=== PATIENT | female | born 1945 | race Caucasian/White ===

== ENCOUNTER 2017-01-19 08:36 | Day surgery (SDC) | payer MEDICARE ==
[~2017-01-19] VITALS: Ht 165.1 cm; Wt 61.0 kg
[~2017-01-19 08:36] MED LIST: PHENYLEPHRINE 2.5% EYE DROPS 5ml RIGHT EYE PRN
--- OUTSIDE RECORDS SUMMARY | 2017-01-19 08:41 | XMS REPORT | Referral Summary ---
Author Author [facility] Organization [facility] Address Unknown Phone Unavailable Care Team Providers Care Program Architect Name Role Phone Rust, The Primary Care Physician Unavailable Encounter [facility] [id number] Date(s): 10/19/16 - 10/19/16 [facility] [address] [place] [address] Discharge Disposition: 01-Home or Self Care Attending Physician: Rachel Mathews DO Vital Signs No data available for this section Problem List No data available for this section Allergies, Adverse Reactions, Alerts No data available for this section Medications No data available for this section Results No data available for this section Immunizations No data available for this section Procedures No data available for this section Social History No data available for this section Assessment and Plan No data available for this section
--- OUTSIDE RECORDS SUMMARY | 2017-01-19 08:41 | XMS REPORT ---
Author Author Nissa Ferrer 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
--- OUTSIDE RECORDS SUMMARY | 2017-01-19 08:41 | XMS REPORT ---
Author Author Nissa Ferrer [facility] Address [address] [place] [address] Care Team Providers Care Steam Plant Records Clerk Name Role Phone Nissa Ferrer Unavailable [phone] PROBLEMS Type Condition ICD9-CM Code EVB36-ZB Code Onset Dates Condition Status SNOMED Code Problem Unilateral primary osteoarthritis, right hip M16.11 Active 806721107 Problem Rheumatoid arthritis, unspecified M06.9 Active 07617533 Problem Other hyperlipidemia E78.4 Active 17310975 Problem Essential (primary) hypertension I10 Active 06224074 Problem Overactive bladder N32.81 Active 303695289 ALLERGIES Unknown Allergies SOCIAL HISTORY No smoking Hx information available PLAN OF CARE VITAL SIGNS MEDICATIONS Unknown Medications RESULTS No Results PROCEDURES No Known procedures IMMUNIZATIONS No Known Immunizations
--- OUTSIDE RECORDS SUMMARY | 2017-01-19 08:41 | XMS REPORT ---
Author Author Nissa Ferrer [facility] Address [address] [place] [address] Care Team Providers Care Traffic Analysis Technician Name Role Phone Nissa Ferrer Unavailable [phone] PROBLEMS Type Condition ICD9-CM Code ZHO07-WA Code Onset Dates Condition Status SNOMED Code Problem Rheumatoid arthritis, unspecified M06.9 Active 96948002 Problem Essential (primary) hypertension I10 Active 83662837 Problem Overactive bladder N32.81 Active 209231287 Problem Other hyperlipidemia E78.4 Active 65813380 ALLERGIES Unknown Allergies SOCIAL HISTORY No smoking Hx information available PLAN OF CARE VITAL SIGNS MEDICATIONS Unknown Medications RESULTS No Results PROCEDURES No Known procedures IMMUNIZATIONS No Known Immunizations
--- OUTSIDE RECORDS SUMMARY | 2017-01-19 08:41 | XMS REPORT ---
Author Author Nissa Ferrer Organization [facility] Address [address] [place] [address] Care Team Providers Care Cardroom Attendant Name Role Phone Nissa Ferrer Unavailable [phone] PROBLEMS Type Condition ICD9-CM Code TFK81-ET Code Onset Dates Condition Status SNOMED Code Problem Unilateral primary osteoarthritis, right hip M16.11 Active 306004202 Problem Rheumatoid arthritis, unspecified M06.9 Active 85251727 Problem Other hyperlipidemia E78.4 Active 22986738 Problem Essential (primary) hypertension I10 Active 44691688 Problem Overactive bladder N32.81 Active 279423193 ALLERGIES Unknown Allergies SOCIAL HISTORY No smoking Hx information available PLAN OF CARE VITAL SIGNS MEDICATIONS Medication Instructions Dosage Frequency Start Date End Date Duration Status Potassium Chloride Edith ER 20 MEQ Orally Twice a day 1 tablet 12h Dec, 6 days Active RESULTS No Results PROCEDURES No Known procedures IMMUNIZATIONS No Known Immunizations
--- OUTSIDE RECORDS SUMMARY | 2017-01-19 08:41 | XMS REPORT | Continuity of Care Document ---
Author Author [facility] Organization [facility] Address Unknown Phone Unavailable Allergies Medications Problems Date Dx Coded Attending Type Code Diagnosis Diagnosed By 12/17/2016 Rachel Mathews DO Z01.812 ENCOUNTER FOR PREPROCEDURAL LABORATORY E Procedures Results Encounters ACCT No. Visit Date/Time Discharge Status Pt. Type Provider Facility Loc./Unit Complaint [id number] 12/17/2016 11:38:00 2016 11:38:00 DIS Outpatient Rachel Mathews DO [facility]
--- OUTSIDE RECORDS SUMMARY | 2017-01-19 08:41 | XMS REPORT ---
Author Author Nissa Ferrer Organization [facility] Address [address] [place] [address] Care Team Providers Care Entry Level Name Role Phone Nissa Ferrer Unavailable [phone] PROBLEMS Type Condition ICD9-CM Code NVL33-ZV Code Onset Dates Condition Status SNOMED Code Assessment Encounter for preprocedural laboratory examination Z01.812 Dec, Active Assessment Encounter for other preprocedural examination Z01.818 Dec, Active 030261918 Assessment Encounter for preprocedural cardiovascular examination Z01.810 Dec, Active 069374007 Assessment Other benign neoplasm of skin of other parts of face D23.39 Dec, Active 97016194 Assessment Other subjective visual disturbances H53.19 Dec, Active 12358233 Assessment Other abnormal findings in urine R82.99 Dec, Active 785145254 Problem 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 Unknown Non Drug Allergy Dec, Unknown SOCIAL HISTORY No smoking Hx information available PLAN OF CARE Activity Details Future/Pending Procedure -ELECTROCARDIOGRAM, COMPLETE 3 Months, prn,Reason: VITAL SIGNS Height 64 in 2016-12-17 Weight 138.2 lbs 2016-12-17 BMI 23.72 kg/m2 2016-12-17 Heart Rate 65 /min 2016-12-17 Temperature 98.1 degrees Fahrenheit 2016-12-17 Blood pressure systolic 132 mm Hg 2016-12-17 Blood pressure diastolic 76 mm Hg 2016-12-17 MEDICATIONS Medication Instructions Dosage Frequency Start Date End Date Duration Status Metoprolol Tartrate 50 MG Orally Twice a day 1 tablet 12h Active Lisinopril-Hydrochlorothiazide 10-12.5 MG Orally twice a day 1 tablet 12h 24 Oct, 2016 Active Vitamin C 500 MG Active Leflunomide 20 MG Orally Once a day 1 tablet 24h Active Hydroxychloroquine Sulfate 200 MG Orally twice a day (bid) 1.5 tablet with food or milk Active Vitamin D-3 1000 UNIT Orally Once a day 1 capsule 24h Active Lovastatin 10 mg Orally Once a day 1 tablet with a meal 24h Active RESULTS No Results PROCEDURES Procedure Date Ordered Related Diagnosis Body Site -ELECTROCARDIOGRAM, COMPLETE December 17, 2016 COMPREHEN METABOLIC PANEL December 17, 2016 URINE CULTURE/COLONY COUNT December 17, 2016 URINALYSIS, AUTO, W/O SCOPE December 17, 2016 Office Visit, Est Pt., Level 3 December 17, 2016 URINE BACTERIA CULTURE December 17, 2016 IMMUNIZATIONS No Known Immunizations
--- OUTSIDE RECORDS SUMMARY | 2017-01-19 08:41 | XMS REPORT ---
Author Author Nissa Ferrer Organization [facility] Address [address] [place] [address] Care Team Providers Care Dough Braker Name Role Phone Nissa Ferrer Unavailable [phone] PROBLEMS Type Condition ICD9-CM Code NHY87-QV Code Onset Dates Condition Status SNOMED Code Problem Rheumatoid arthritis, unspecified M06.9 Active 76717839 Problem Essential (primary) hypertension I10 Active 06746942 Assessment Essential (primary) hypertension I10 Oct, Active 64087627 Assessment Pain in right hip M25.551 Oct, Active 728940208 Problem Overactive bladder N32.81 Active 723296445 Problem Other hyperlipidemia E78.4 Active 31085425 ALLERGIES Substance Reaction Event Type Date Status N.K.D.A. Unknown Non Drug Allergy Oct, Unknown SOCIAL HISTORY No smoking Hx information available PLAN OF CARE VITAL SIGNS Height 64 in 2016-10-05 Weight 135.6 lbs 2016-10-05 BMI 23.27 kg/m2 2016-10-05 Heart Rate 63 /min 2016-10-05 Temperature 98.2 degrees Fahrenheit 2016-10-05 Blood pressure systolic 177 mm Hg 2016-10-05 Blood pressure diastolic 81 mm Hg 2016-10-05 MEDICATIONS Medication Instructions Dosage Frequency Start Date End Date Duration Status Fish Oil 1200 MG Orally Once a day 1 capsule 24h Active Tolterodine Tartrate 2 MG Orally Twice a day 1 tablet 12h Active Vitamin D-3 1000 UNIT Orally Once a day 1 capsule 24h Active Lovastatin 20 MG Orally Once a day 1 tablet with a meal 24h Active Vitamin C 500 MG Active Leflunomide 20 MG Orally Once a day 1 tablet 24h Active Hydroxychloroquine Sulfate 200 MG Orally twice a day (bid) 1.5 tablet with food or milk Active Metoprolol Tartrate 50 MG Orally Twice a day 1 tablet 12h Active Triamterene-HCTZ 37.5-25 MG Orally Once a day 1 tablet in the morning 24h Active RESULTS No Results PROCEDURES Procedure Date Ordered Related Diagnosis Body Site Office Visit, New Pt., Level 2 Oct 05, 2016 IMMUNIZATIONS No Known Immunizations
--- OUTSIDE RECORDS SUMMARY | 2017-01-19 08:41 | XMS REPORT ---
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 Active Problem Unilateral primary osteoarthritis, right hip M16.11 Active 765484263 Problem Overactive bladder N32.81 Active 579598488 Problem Other hyperlipidemia E78.4 Active 24800686 Problem Rheumatoid arthritis, unspecified M06.9 Active 22936834 Problem Essential (primary) hypertension I10 Active 93533517 ALLERGIES Unknown Allergies SOCIAL HISTORY No smoking Hx information available PLAN OF CARE VITAL SIGNS MEDICATIONS Medication Instructions Dosage Frequency Start Date End Date Duration Status Lisinopril 20 MG Orally Once a day 1 tablet 24h Dec, 90 day(s) Active RESULTS No Results PROCEDURES No Known procedures IMMUNIZATIONS No Known Immunizations
--- OUTSIDE RECORDS SUMMARY | 2017-01-19 08:41 | XMS REPORT ---
Author Author Nissa Ferrer [facility] Address [address] [place] [address] Care Team Providers Care Ukrainian Folk Arts Instructor Name Role Phone Nissa Ferrer Unavailable [phone] PROBLEMS Type Condition ICD9-CM Code VBQ15-ES Code Onset Dates Condition Status SNOMED Code Problem Unilateral primary osteoarthritis, right hip M16.11 Active 898898838 Problem Rheumatoid arthritis, unspecified M06.9 Active 88228411 Problem Other hyperlipidemia E78.4 Active 89322695 Problem Essential (primary) hypertension I10 Active 79612324 Problem Overactive bladder N32.81 Active 968625592 ALLERGIES Unknown Allergies SOCIAL HISTORY No smoking Hx information available PLAN OF CARE VITAL SIGNS MEDICATIONS Medication Instructions Dosage Frequency Start Date End Date Duration Status Amoxicillin 500 MG Orally Twice a day 1 capsule 12h Dec, 7 days Active RESULTS No Results PROCEDURES No Known procedures IMMUNIZATIONS No Known Immunizations
--- OUTSIDE RECORDS SUMMARY | 2017-01-19 08:41 | XMS REPORT ---
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 Unknown Non Drug Allergy Dec, Unknown SOCIAL HISTORY No smoking Hx information available PLAN OF CARE VITAL SIGNS Height 64 in 2016-12-07 Weight 138lb 6oz lbs 2016-12-07 BMI 23.75 kg/m2 2016-12-07 Heart Rate 60 /min 2016-12-07 Temperature 98.4 degrees Fahrenheit 2016-12-07 Blood pressure systolic 176 mm Hg 2016-12-07 Blood pressure diastolic 91 mm Hg 2016-12-07 MEDICATIONS Medication Instructions Dosage Frequency Start Date End Date Duration Status Hydroxychloroquine Sulfate 200 MG Orally twice a day (bid) 1.5 tablet with food or milk Active Leflunomide 20 MG Orally Once a day 1 tablet 24h Active Amoxicillin 500 MG Orally Twice a day 1 capsule 12h Dec, 7 days Active Metoprolol Tartrate 50 MG Orally Twice a day 1 tablet 12h Active Potassium Chloride Edith ER 20 MEQ Orally Twice a day 1 tablet 12h Dec, 6 days Active Lovastatin 10 mg Orally Once a day 1 tablet with a meal 24h Active Lisinopril-Hydrochlorothiazide 10-12.5 MG Orally twice a day 1 tablet 12h 24 Oct, 2016 Active Vitamin D-3 1000 UNIT Orally Once a day 1 capsule 24h Active Vitamin C 500 MG Active RESULTS No Results PROCEDURES Procedure Date Ordered Related Diagnosis Body Site Office Visit, Est Pt., Level 2 December 07, 2016 IMMUNIZATIONS No Known Immunizations
--- OUTSIDE RECORDS SUMMARY | 2017-01-19 08:41 | XMS REPORT ---
Author Author Nissa Ferrer [facility] Address [address] [place] [address] Care Team Providers Care Supervisor Shuttle Fitting Name Role Phone Nissa Ferrer Unavailable [phone] PROBLEMS Type Condition ICD9-CM Code YMP62-DL Code Onset Dates Condition Status SNOMED Code Assessment Encounter for other specified special examinations Z01.89 02 Dec, 2016 Active 47701108 Assessment Other abnormal findings in urine R82.99 Dec, Active 631436738 Problem Unilateral primary osteoarthritis, right hip M16.11 Active 005527096 Problem Rheumatoid arthritis, unspecified M06.9 Active 07052329 Problem Other hyperlipidemia E78.4 Active 18855788 Assessment Encounter for preprocedural laboratory examination Z01.812 Dec, Active Problem Essential (primary) hypertension I10 Active 56509774 Problem Overactive bladder N32.81 Active 835355584 ALLERGIES Unknown Allergies SOCIAL HISTORY No smoking Hx information available PLAN OF CARE VITAL SIGNS MEDICATIONS Unknown Medications RESULTS No Results PROCEDURES No Known procedures IMMUNIZATIONS No Known Immunizations
[2017-01-19 09:16] VITALS: Ht 165.1 cm; Wt 61.0 kg
[2017-01-19 09:17] VITALS: BP 183/88; PULSE 60; RESP 18; TEMP 98.2; O2SAT 96
[2017-01-19] MEDS: TETRACAINE 0.5% EYE DROPS 4ml BOTTLE RIGHT EYE PRN ×2 (09:34→10:19)
[2017-01-19] MEDS ORDERED: PrednisoLONE 1% EYE DROPS 5ml RIGHT EYE ONE (09:45)
[2017-01-19] MEDS ORDERED: BRIMONIDINE 0.2% EYE DROPS 5ml RIGHT EYE ONE (09:45)
[2017-01-19] MEDS ORDERED: LEFL10TA16 PO (09:47)
[2017-01-19] MEDS ORDERED: CALC1TAB (09:47)
[2017-01-19] MEDS ORDERED: METO50TA5 PO (09:47)
[2017-01-19] MEDS ORDERED: HYDR200T4 PO (09:47)
[2017-01-19] MEDS ORDERED: LISI-621 PO ×2 (09:47)
[2017-01-19] MEDS ORDERED: LOVA20TA3 PO (09:47)
[2017-01-19] MEDS ORDERED: ASPI-557 PO ×2 (09:47)
[2017-01-19] MEDS ORDERED: ASCO500C16 PO (09:47)
[2017-01-19 10:31] VITALS: BP 167/76; PULSE 62; RESP 18; O2SAT 95
[2017-01-19 10:46] VITALS: BP 183/83; PULSE 61; RESP 18; O2SAT 97
[2017-01-19 11:13] VITALS: BP 172/77; PULSE 60; RESP 18; O2SAT 97
[2017-01-19] MEDS ORDERED: TROPICAMIDE 1% EYE DROPS 3ml RIGHT EYE PRN (15:30)
[2017-01-19] MEDS ORDERED: PHENYLEPHRINE 2.5% EYE DROPS 5ml RIGHT EYE PRN (15:45)
--- NOTE | 2017-01-19 16:08 | OPNOTEF ---
DATE OF OPERATION 01/19/2017 PREOPERATIVE AND POSTOPERATIVE DIAGNOSES Visually significant opacified posterior capsule, right eye. PROCEDURE YAG capsulotomy of the posterior capsule, right eye. SURGEON Justo King M.D. DESCRIPTION OF PROCEDURE The patient was brought to the laser room after having received dilating drops and noted that the eye was sufficiently dilated with 2.5% phenylephrine, 1% tropicamide. Tetracaine was placed into the eye and a YAG capsulotomy lens was placed over the eye after Goniosol was placed in the lens. The laser was focused on the posterior capsule and with 41 bursts at an energy of 2.3 millijoules for a total of 95.6 millijoules, the posterior capsule was successfully opened and noted to be clear. The Yag capsulotomy lens was removed, the eye rinsed and a drop of Brimonidine was placed into the eye and half an hour later the pressure was checked and noted to be normal. This completed the procedure. Patient left the laser room in good condition with no complications. BRENDA
== END 2017-01-19 11:24 | disposition home or self-care (01) ==
LOC: NSC 08:36
PROVIDERS: ATTEND Ophthalmology
DX: H26.491 Other secondary cataract, right eye (principal)